=== PATIENT | male | born 1970 | race American Indian/Alaskan Native ===

== ENCOUNTER 2021-05-15 14:16 | Emergency (ER) | payer SELFPAY ==
--- NOTE | 2021-06-08 08:42 | ED Elopement Review ---
ED Pt Elopement review - Results review Lab results: I did not evaluate this patient. Patient left without being seen.
== END 2021-05-15 18:00 ==
LOC: ED 14:16
DX: M54.9 Dorsalgia, unspecified (principal); Z53.21 Procedure and treatment not carried out due to patient leaving prior to being seen by health care provider